=== PATIENT | female | born 1955 | race Caucasian/White ===

== ENCOUNTER 2021-01-05 20:34 | Inpatient (IN) | payer MEDICAID ==
[~2021-01-05] VITALS: Ht 152.4 cm; Wt 52.2 kg
[2021-01-05] MEDS ORDERED: SODIUM CHLORIDE 0.9% 1000ML BAG (SEPSIS BOLUS) IV ONE (21:00)
[2021-01-05] MEDS ORDERED: VANCOMYCIN 1 G PREMIX 200 ML IV ONE (21:00)
[2021-01-05] MEDS ORDERED: PIPERACILLIN/TAZ 3.375G PREMIX 50 ML IV ONE (21:00)
[2021-01-05] MEDS ORDERED: DEXAMETHASONE 10 MG/ML VIAL IV ONE (21:00)
[2021-01-05] MEDS ORDERED: ACETAMINOPHEN 325MG TABLET PO ONE (21:00)
[2021-01-05 21:18] LABS: BG BASE EXCESS -3.9 mmol/L (-2.0-2.0); BG CARBOXYHEMOGLOBIN 0.1 % (0.5-1.5); BG DEOXYHEMOGLOBIN 0.4 % (0.0-5.0); BG FRACTION INSPIRED OXYGEN 100; BG METHEMOGLOBIN 0.3 % (0.0-1.5); BG OXYGEN SATURATION 99.6 % (92.0-98.5); BG OXYHEMOGLOBIN 99.2 % (94.0-97.0); BG PCO2 49.7 mmHg (35.0-45.0); BG PH 7.284 (7.350-7.450); BG PO2 427.4 mmHg (75.0-100.0); BG SAMPLE SITE RIGHT RADIAL; BG TOTAL HEMOGLOBIN 12.5 g/dL (12.0-18.0); BG VENT MODE MASK - NRB
[2021-01-05 21:26] LABS: CHLORIDE 109 mEq/L (98-107)
[2021-01-05 21:28] LABS: BASOPHILS % 1.1 % (0.0-2.0); EOSINOPHILS % 12.2 % (0.0-5.0); HEMATOCRIT. 37.7 % (36.0-48.0); HEMOGLOBIN. 12.8 g/dL (12.0-16.0); LYMPHOCYTES % 33.2 % (20.0-50.0); MEAN CORPUSCULAR HEMOGLOBIN 32.2 pg (28.0-32.0); MEAN CORPUSCULAR VOLUME 94.8 fL (81.0-99.0); MEAN PLATELET VOLUME 9.8 fl (7.4-10.4); MONOCYTES % 7.4 % (2.0-8.0); NEUTROPHILS % 46.1 % (40.0-76.0); PLATELET 136 x1000/uL (130-400); RED BLOOD CELL COUNT 3.98 mill/uL (4.2-5.4); RED CELL DISTRIBUTION WIDTH 15.7 % (11.6-14.6)
[2021-01-05 21:32] LABS: INR 1.1; PARTIAL THROMBOPLASTIN TIME 27.4 sec (23.4-31.0); PROTHROMBIN TIME 11.5 sec (9.6-11.0)
[2021-01-05 22:16] LABS: BG BASE EXCESS -6.8 mmol/L (-2.0-2.0); BG CARBOXYHEMOGLOBIN 0.6 % (0.5-1.5); BG DEOXYHEMOGLOBIN 3.6 % (0.0-5.0); BG FRACTION INSPIRED OXYGEN 30; BG HCO3 ACT 20.6 mmol/L (22.0-26.0); BG METHEMOGLOBIN 0.2 % (0.0-1.5); BG OXYGEN SATURATION 96.4 % (92.0-98.5); BG OXYHEMOGLOBIN 95.6 % (94.0-97.0); BG PCO2 48.7 mmHg (35.0-45.0); BG PH 7.245 (7.350-7.450); BG SAMPLE SITE LEFT RADIAL; BG TOTAL HEMOGLOBIN 13.8 g/dL (12.0-18.0); BG VENT MODE MASK - BIPAP
[2021-01-06 00:03] LABS: BG BASE EXCESS -2.9 mmol/L (-2.0-2.0); BG CARBOXYHEMOGLOBIN 0.3 % (0.5-1.5); BG DEOXYHEMOGLOBIN 0.4 % (0.0-5.0); BG FRACTION INSPIRED OXYGEN 80; BG HCO3 ACT 24.2 mmol/L (22.0-26.0); BG METHEMOGLOBIN 0.3 % (0.0-1.5); BG OXYGEN SATURATION 99.6 % (92.0-98.5); BG PCO2 51.2 mmHg (35.0-45.0); BG PH 7.292 (7.350-7.450); BG PO2 359.6 mmHg (75.0-100.0); BG SAMPLE SITE RIGHT RADIAL; BG TOTAL HEMOGLOBIN 13.4 g/dL (12.0-18.0); BG VENT MODE MASK - BIPAP
[2021-01-06 00:26] LABS: CLARITY URINE CLEAR (CLEAR); COLOR URINE YELLOW (YELLOW); KETONES URINE NEGATIVE (NEGATIVE); LEUKOCYTE ESTERASE URINE NEGATIVE (NEGATIVE); NITRITE URINE NEGATIVE (NEGATIVE); OCCULT BLOOD URINE NEGATIVE (NEGATIVE); PROTEIN URINE NEGATIVE (NEGATIVE); SPECIFIC GRAVITY URINE 1.008 (1.005-1.030); UROBILINOGEN URINE 0.2 E.U./dL (0.2-1.0)
[2021-01-06] MEDS ORDERED: ALBUTEROL 6.7GM HFA INHALER ORI PRN (10:00)
[2021-01-06] MEDS ORDERED: CEFTRIAXONE 1,000 MG in DEXTROSE 5% WATER 50 ML IV SCH (10:00)
[2021-01-06] MEDS ORDERED: CEFTRIAXONE SODIUM 1 G/VIAL ONE (10:20)
[2021-01-06] MEDS: ENOXAPARIN 40MG/0.4ML SYR SUBCUT SCH (10:33)
[2021-01-06] MEDS: DEXAMETHASONE 6MG TABLET PO SCH (10:42)
[2021-01-06] MEDS: AZITHROMYCIN 500 MG in DEXT 5% WATER 250 ML IV SCH (11:26)
[2021-01-06 12:05] LABS: BG BASE EXCESS -0.6 mmol/L (-2.0-2.0); BG CARBOXYHEMOGLOBIN 0.2 % (0.5-1.5); BG DEOXYHEMOGLOBIN 1.1 % (0.0-5.0); BG FRACTION INSPIRED OXYGEN 50; BG HCO3 ACT 26.2 mmol/L (22.0-26.0); BG METHEMOGLOBIN 0.2 % (0.0-1.5); BG OXYGEN SATURATION 98.9 % (92.0-98.5); BG OXYHEMOGLOBIN 98.5 % (94.0-97.0); BG PCO2 51.5 mmHg (35.0-45.0); BG PH 7.324 (7.350-7.450); BG PO2 152.6 mmHg (75.0-100.0); BG SAMPLE SITE RIGHT BRACHIAL; BG TOTAL HEMOGLOBIN 13.6 g/dL (12.0-18.0); BG TOTAL RESPIRATORY RATE 21 b/min; BG VENT MODE MASK - BIPAP
[2021-01-06] MEDS ORDERED: ALBU6.7H9 INH (17:26)
[2021-01-06] MEDS ORDERED: AMLO10TA80 PO (17:26)
[2021-01-06] MEDS ORDERED: BENZ200C52 PO (17:26)
[2021-01-06] MEDS ORDERED: LEVO75TA7 PO (17:26)
[2021-01-06 20:00] VITALS: BP 151/79
[2021-01-06] MEDS ORDERED: GUAIFENESIN/DM 600MG/30MG ER TAB 12HR PO PRN (20:45)
[2021-01-06] MEDS ORDERED: ALBUTEROL (0.083%) 2.5MG/3ML NEB HHN PRN (20:45)
[2021-01-06] MEDS: IPRATROPIUM/ALBUTEROL 0.5-3(2.5)MG/3ML NEB HHN SCH (22:00)
[2021-01-07] VITALS (9 sets, daily range): BP systolic 106–160; BP diastolic 65–101
[2021-01-07] MEDS: IPRATROPIUM/ALBUTEROL 0.5-3(2.5)MG/3ML NEB HHN SCH ×5 (02:00→21:44)
[2021-01-07 06:04] LABS: BASOPHILS % 0.4 % (0.0-2.0); EOSINOPHILS % 0.3 % (0.0-5.0); HEMOGLOBIN. 13.4 g/dL (12.0-16.0); LYMPHOCYTES % 23.2 % (20.0-50.0); MEAN CORPUSCULAR HEMOGLOBIN 31.8 pg (28.0-32.0); MEAN CORPUSCULAR VOLUME 95.4 fL (81.0-99.0); MEAN PLATELET VOLUME 10.1 fl (7.4-10.4); MONOCYTES % 10.9 % (2.0-8.0); NEUTROPHILS % 65.2 % (40.0-76.0); PLATELET 143 x1000/uL (130-400); RED CELL DISTRIBUTION WIDTH 15.4 % (11.6-14.6)
[2021-01-07 06:08] LABS: CHLORIDE 103 mEq/L (98-107)
[2021-01-07] MEDS ORDERED: CLONIDINE 0.1MG TABLET PO PRN (07:00)
[2021-01-07] MEDS: CEFTRIAXONE 1,000 MG in DEXTROSE 5% WATER 50 ML IV SCH (09:12)
[2021-01-07] MEDS: AMLODIPINE 10MG TABLET PO SCH (09:13)
[2021-01-07] MEDS: DEXAMETHASONE 6MG TABLET PO SCH (09:13)
[2021-01-07] MEDS ORDERED: IPRATROPIUM/ALBUTEROL 0.5-3(2.5)MG/3ML NEB HHN PRN (10:30)
[2021-01-07] MEDS: METHYLPREDNISOLONE SOD SUCC 40 MG/ML VIAL IV SCH ×2 (11:18→20:30)
[2021-01-07] MEDS: ENOXAPARIN 40MG/0.4ML SYR SUBCUT SCH (11:21)
[2021-01-07] MEDS: AZITHROMYCIN 500 MG in DEXT 5% WATER 250 ML IV SCH (11:21)
[2021-01-07] MEDS: BENZONATATE 100MG CAPSULE PO SCH ×2 (11:21→20:30)
[2021-01-07] MEDS: MONTELUKAST SODIUM 10MG TABLET PO SCH (17:18)
[2021-01-08] VITALS (12 sets, daily range): BP systolic 97–132; BP diastolic 57–80
[2021-01-08] MEDS: IPRATROPIUM/ALBUTEROL 0.5-3(2.5)MG/3ML NEB HHN SCH ×6 (00:48→21:03)
[2021-01-08] MEDS: BENZONATATE 100MG CAPSULE PO SCH ×3 (03:46→20:54)
[2021-01-08] MEDS: METHYLPREDNISOLONE SOD SUCC 40 MG/ML VIAL IV SCH ×3 (03:46→18:28)
[2021-01-08] MEDS: CEFTRIAXONE 1,000 MG in DEXTROSE 5% WATER 50 ML IV SCH (09:23)
[2021-01-08] MEDS: AZITHROMYCIN 500 MG TABLET PO SCH (09:23)
[2021-01-08] MEDS: AMLODIPINE 10MG TABLET PO SCH (09:24)
[2021-01-08] MEDS: ENOXAPARIN 40MG/0.4ML SYR SUBCUT SCH (09:24)
[2021-01-08] MEDS: MONTELUKAST SODIUM 10MG TABLET PO SCH (16:28)
[2021-01-08 18:12] LABS: BG BASE EXCESS 5.1 mmol/L (-2.0-2.0); BG CARBOXYHEMOGLOBIN 0.5 % (0.5-1.5); BG DEOXYHEMOGLOBIN 8.9 % (0.0-5.0); BG FRACTION INSPIRED OXYGEN 21; BG METHEMOGLOBIN 0.2 % (0.0-1.5); BG OXYHEMOGLOBIN 90.4 % (94.0-97.0); BG PCO2 39.9 mmHg (35.0-45.0); BG PH 7.479 (7.350-7.450); BG PO2 56.2 mmHg (75.0-100.0); BG SAMPLE SITE RIGHT BRACHIAL; BG TOTAL HEMOGLOBIN 13.6 g/dL (12.0-18.0); BG VENT MODE ROOM AIR
[2021-01-08] MEDS: GUAIFENESIN 600MG ER TABLET PO SCH (20:56)
[2021-01-09] VITALS (7 sets, daily range): BP systolic 105–140; BP diastolic 59–84
[2021-01-09] MEDS: IPRATROPIUM/ALBUTEROL 0.5-3(2.5)MG/3ML NEB HHN SCH ×3 (00:42→10:00)
[2021-01-09] MEDS: METHYLPREDNISOLONE SOD SUCC 40 MG/ML VIAL IV SCH ×2 (03:40→11:30)
[2021-01-09] MEDS: BENZONATATE 100MG CAPSULE PO SCH ×2 (03:40→11:30)
[2021-01-09] MEDS: AMLODIPINE 10MG TABLET PO SCH (08:51)
[2021-01-09] MEDS: CEFTRIAXONE 1,000 MG in DEXTROSE 5% WATER 50 ML IV SCH (08:51)
[2021-01-09] MEDS: GUAIFENESIN 600MG ER TABLET PO SCH (08:52)
[2021-01-09] MEDS: AZITHROMYCIN 500 MG TABLET PO SCH (08:52)
[2021-01-09] MEDS ORDERED: LEVO500T89 MT (09:57)
[2021-01-09] MEDS ORDERED: P20 MT (09:57)
[2021-01-09] MEDS ORDERED: ALBU6.7H9 INH (09:57)
[2021-01-09] MEDS: ENOXAPARIN 40MG/0.4ML SYR SUBCUT SCH (10:00)
== END 2021-01-09 12:10 | disposition home or self-care (01) | DRG 139 ==
LOC: ER 20:34 → EDBEDREQ 01-06 00:52 → EDBEDREQTM 01-06 00:52 → MICUSO 01-06 03:28 → 7WST 01-06 13:56 → 3WST 01-07 16:31
PROVIDERS: ADMIT Internal Medicine; ATTEND Internal Medicine
PROC: 5A09357 Assistance with Respiratory Ventilation, Less than 24 Consecutive Hours, Continuous Positive Airway Pressure (ICD-10-PCS; principal; 2021-01-06)
DX: J15.9 Unspecified bacterial pneumonia (principal); J96.01 Acute respiratory failure with hypoxia; D72.10 Eosinophilia, unspecified; J45.901 Unspecified asthma with (acute) exacerbation; E87.8 Other disorders of electrolyte and fluid balance, not elsewhere classified; I10 Essential (primary) hypertension; E03.9 Hypothyroidism, unspecified; Z20.822 Contact with and (suspected) exposure to COVID-19; Z79.899 Other long term (current) drug therapy
CPT/HCPCS: 36415; 36600; 71045; 80048; 80053; 81003; 82375; 82805; 82962; 83605; 83880; 84145; 84484; 85025; 93005; 94660; 97162; 99291; J0456; J0696; J1100; J1650; J2543; J2920; J3370; J7030; J7060; U0003; U0005